=== PATIENT | female | born 1985 | race African-American/Black ===

== ENCOUNTER 2017-12-12 08:32 | Emergency (ER) | payer BC ==
[~2017-12-12] VITALS: Ht 162.6 cm; Wt 57.6 kg
[~2017-12-12 08:32] MED LIST: AMOXICILLIN 50500 MG PO; DIFLUCAN150 MG PO; KEFLEX500 MG PO; NOHOMEMEDICATIONS; PREDNISONE 20 M20 MG PO; TOBREX5 ML OPHTHALMIC
[2017-12-12] MEDS ORDERED: NORCO 5-325 TA1 EACH PO (08:56)
[2017-12-12] MEDS ORDERED: TOBREX5 ML OPHTHALMIC (08:56)
== END 2017-12-12 09:09 | disposition home or self-care (01) ==
LOC: ER 08:32
DX: F17.210 Nicotine dependence, cigarettes, uncomplicated (principal); F10.99 Alcohol use, unspecified with unspecified alcohol-induced disorder; S05.01XA Injury of conjunctiva and corneal abrasion without foreign body, right eye, initial encounter; W22.8XXA Striking against or struck by other objects, initial encounter; Y93.89 Activity, other specified; Y92.89 Other specified places as the place of occurrence of the external cause; Y99.8 Other external cause status

== ENCOUNTER 2018-01-26 10:22 | Emergency (ER) | payer BC ==
[~2018-01-26] VITALS: Ht 162.6 cm; Wt 57.6 kg
[~2018-01-26 10:22] MED LIST changes: +NORCO 5-325 TA1 EACH PO
[2018-01-26 11:27] LABS: URINE BILIRUBIN NEGATIVE (Negative); URINE BLOOD NEGATIVE (Negative); URINE CLARITY CLEAR; URINE COLOR YELLOW; URINE GLUCOSE-RANDOM* NEGATIVE (Negative); URINE KETONES NEGATIVE (Negative); URINE LEUKOCYTES NEGATIVE (Negative); URINE NITRITE NEGATIVE (Negative); URINE PROTEIN (DIPSTICK) NEGATIVE (Negative); URINE SPECIFIC GRAVITY >= 1.030 (1.005-1.035); URINE UROBILINOGEN 0.2 E.U./dl (0.2-1.0)
[2018-01-26 13:21] VITALS: BP 116/71
[2018-01-27 15:06] LABS: NEISSERIA GONORRHEA-PCR Negative (Negative)
== END 2018-01-26 13:24 | disposition home or self-care (01) ==
LOC: ER 10:22
PROVIDERS: Nurse Practitioner
DX: N76.0 Acute vaginitis (principal); F17.210 Nicotine dependence, cigarettes, uncomplicated